=== PATIENT | male | born 1990 | race Caucasian/White ===

== ENCOUNTER 2024-09-08 09:52 | Emergency (ER) | payer BC, SELFPAY ==
--- OUTSIDE RECORDS SUMMARY | 2024-09-08 09:59 | XMS_ITS | Patient Health Summary ---
Author Organization [facility] Address [address] [place] [address] Care Team Providers Care Shake Out Worker Name Role Phone Unavailable Primary Care Provider Unavailabl e Note from [facility],non-owned Affiliates and Associated Physician Practices is amultiple site organization consisting of ambulatory clinics and hospital sitesin [place], [place], [place] and [place]. This disclosure is being madepursuant to the Care Everywhere program and may not contain all information available regarding this patient. Last updated 18.[facility] [employer] Allergies No known active allergies Social History Tobacco Use Types Packs/Day Years Used Date Smoking Tobacco: Never Assessed Sex and Gender Information Value Date Recorded Sex Assigned at Not on file Gender Identity Not on file Sexual Orientation Not on file Procedures * MRI BRAIN WWO CONTRAST(Performed 09/05/2014) Performed for Headache(784.0) Results * MRI BRAIN WITH AND WITHOUT CONTRAST (09/05/2014 3:30 PM CDT) Anatomical Region Laterality Modality Head Magnetic Resonan ce 09/06/2014 6:40 PM CDT Narrative 09/06/2014 6:42 PM CDT Examination: MRI brain, with and without contrast. Indication for examination: Persistent severe headache Precontrast T1 and T2-weighted images with contrast-enhanced T1-weighted images of the brain are obtained. 15 cc Omniscan contrast were used. No prior brain imaging studies are available. No abnormal signal intensity is identified to suggest the presence of tumor, infarct or demyelinating process. Ventricles and subarachnoid pathways are normal in size and configuration. There is no mass lesion or fluid collection. No parenchymal blood product deposition is observed. Paranasal sinuses are well aerated. Contrast-enhanced images show no abnormal enhancement. Conclusion: Unremarkable pre-and postcontrast MRI brain. Procedure Note Eliazar Snyder MD - 09/06/2014 Examination: MRI brain, with and without contrast. Indication for examination: Persistent severe headache Precontrast T1 and T2-weighted images with contrast-enhanced T1-weighted images of the brain are obtained. 15 cc Omniscan contrast were used. No prior brain imaging studies are available. No abnormal signal intensity is identified to suggest the presence of tumor, infarct or demyelinating process. Ventricles and subarachnoid pathways are normal in size and configuration. There is no mass lesion or fluid collection. No parenchymal blood product deposition is observed. Paranasal sinuses are well aerated. Contrast-enhanced images show no abnormal enhancement. Conclusion: Unremarkable pre-and postcontrast MRI brain. Aguilar Mendiola MD MR ORDERABLES
--- OUTSIDE RECORDS SUMMARY | 2024-09-08 09:59 | XMS_ITS | Referral Summary ---
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 Gender Identity Not on file Sexual Orientation Not on file Last Filed Vital Signs Vital Sign Reading Time Taken Comments Blood Pressure 110/76 03/09/2021 10:45 AM CDT Pulse 82 03/09/2021 10:45 AM CDT Temperature 37.1 C (98.7 F) 03/09/2021 10:45 AM CDT Respiratory Rate 18 03/09/2021 10:45 AM CDT Oxygen Saturation 97% 03/09/2021 10:45 AM CDT Inhaled Oxygen Concentration - - Weight 117.9 kg (260 lb) 03/09/2021 10:45 AM CDT Height 172.7 cm (5' 8 ) 03/09/2021 10:45 AM CDT Body Mass Index 39.53 03/09/2021 10:45 AM CDT Plan of Treatment Not on file Insurance [facility] CHOICE PLUS [facility] HMO/PPO Address: [address] [address] [place] [address] Care Teams Cellulose Insulation Helper Relationship Specialty Start Date End Date No, Physician PCP - General 03/08/21
--- OUTSIDE RECORDS SUMMARY | 2024-09-08 09:59 | XMS_ITS | Clinical Summary ---
Author Organization [facility] Address [address] [place] [address] Phone Care Team Providers Care Antique Repairer Name Role Phone Provider, None Primary Care Provider Unavailabl e Allergies No known active allergies Medications methylPREDNISol one (MEDROL DOSPACK) 4 MG Tablet Therapy Pack See product package insert for dosing schedule 21 Tab 03/27/2017 Active meclizine (ANTIVERT) 25 MG Tablet Take 1 Tab by mouth 3 times daily as needed for Dizziness. 15 Tab 07/15/2019 Active Social History Tobacco Use Types Packs/Day Years Used Date Smoking Tobacco: Never Smokeless Tobacco: Never Alcohol Use Standard Drinks/Week Comments No 0 (1 standard drink = 0.6 oz pur e alcohol) Sex and Gender Information Value Date Recorded Sex Assigned at Not on file Legal Sex Male 10:09 PM CDT Gender Identity Not on file Sexual Orientation Not on file Last Filed Vital Signs Vital Sign Reading Time Taken Comments Blood Pressure 134/91 07/15/2019 8:30 PM PLANOGRAMMER Pulse 82 07/15/2019 8:30 PM PLANOGRAMMER Temperature 35.8 C (96.5 F) 07/15/2019 7:15 PM PLANOGRAMMER Respiratory Rate 23 07/15/2019 8:30 PM PLANOGRAMMER Oxygen Saturation 97% 07/15/2019 8:30 PM PLANOGRAMMER Inhaled Oxygen Concentration - - Weight 117.9 kg (260 lb) 07/15/2019 7:15 PM PLANOGRAMMER Height 170.2 cm (5' 7 ) 07/15/2019 7:15 PM PLANOGRAMMER Body Mass Index 40.72 07/15/2019 7:15 PM PLANOGRAMMER Plan of Treatment Health Maintenance Due Date Last Done Comments Hepatitis C Virus (HCV) Screening 1989 TdaP Immunization 1989 Hepatitis B Immunization (1 of 3 - 19+ 3-dose series) 01/13/2008 Influenza Immunization (#1) 2024 SARS-COV-2 Immunization ( - season) 2024 Respiratory Syncytial Virus (RSV) Immunization (Adult) (1 - 1-dose 75+ series) 01/13/2064 Meningococcal Immunization (ACWY) Aged Out No longer eligible based on patient's age to complete this topic Pneumococcal Immunization Combined Aged Out No longer eligible based on patient's age to complete this topic Rotavirus Immunization Aged Out No lo nger eligible based on patient's age to complete this topic Care Teams Antique Repairer Relationship Specialty Start Date End Date Provider, None [place] PCP - General 10/24/16
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
--- OUTSIDE RECORDS SUMMARY | 2024-09-08 09:59 | XMS_ITS | Referral Summary ---
Author Organization [facility] Address [address] [place] [address] Care Team Providers Care Food And Beverage Intern Name Role Phone Unavailable Primary Care Provider Unavailabl e Source Comments [facility],non-owned Affiliates and Associated Physician Practices is amultiple site organization consisting of ambulatory clinics and hospital sitesin [place], [place], [place] and [place]. This disclosure is being madepursuant to the Care Everywhere program and may not contain all information available regarding this patient. Last updated 18.[facility] Allergies No known active allergies Social History Tobacco Use Types Packs/Day Years Used Date Smoking Tobacco: Never Assessed Sex and Gender Information Value Date Recorded Sex Assigned at Not on file Gender Identity Not on file Sexual Orientation Not on file Plan of Treatment Not on file
--- OUTSIDE RECORDS SUMMARY | 2024-09-08 09:59 | XMS_ITS | Clinical Summary ---
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
--- OUTSIDE RECORDS SUMMARY | 2024-09-08 09:59 | XMS_ITS | Clinical Summary ---
Author Organization [facility] Address [address] [place] [address] Care Team Providers Care Solar Panel Installer Name Role Phone Unavailable Primary Care Provider Unavailabl e Source Comments [facility],non-owned Affiliates and Associated Physician Practices is amultiple site organization consisting of ambulatory clinics and hospital sitesin [place], [place], [place] and [place]. This disclosure is being madepursuant to the Care Everywhere program and may not contain all information available regarding this patient. Last updated 18.[facility] Allergies No known active allergies Social History Tobacco Use Types Packs/Day Years Used Date Smoking Tobacco: Never Assessed Sex and Gender Information Value Date Recorded Sex Assigned at Not on file Gender Identity Not on file Sexual Orientation Not on file Plan of Treatment Health Maintenance Due Date Last Done Comments HIV SCREENING 01/13/2004 HEPATITIS C SCREENING 01/08/2007 DTAP/TDAP/TD VACCINES (1 - Tdap) 01/13/2008 HEPATITIS B VACCINE (1 of 3 - 19+ 3-dose series) 01/13/2008 COVID-19 VACCINE ( - 2023-2 5 season) 2024 INFLUENZA VACCINE (#1) 2024 DEPRESSION SCREENING 06/26/2024 ZOSTER VACCINE (1 of 2) 2039 HIB VACCINE Aged Out No longer eligi ble based on patient's age to complete this topic HPV VACCINE Aged Out No longer eligi ble based on patient's age to complete this topic MENINGOCOCCAL (Group B) VACC INE SHARED DECISION-MAKING Aged Out No longer eligibl e based on patient's age to complete this topic MENINGOCOCCAL GROUPS A/C/Y/W VACCINE Aged Out No longer eligible b ased on patient's age to complete this topic PNEUMOCOCCAL VACCINE Aged Out No long er eligible based on patient's age to complete this topic
--- OUTSIDE RECORDS SUMMARY | 2024-09-08 09:59 | XMS_ITS | Clinical Summary ---
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 Gender Identity Not on file Sexual Orientation Not on file Plan of Treatment Health Maintenance Due Date Last Done Comments Annual Physical 01/13/1992 Hepatitis C 2007 DTaP, Tdap and Td Vaccines ( 1 - Tdap) 01/13/2008 Hepatitis B Vaccines (1 of 3 - 19+ 3-dose series) 01/13/2008 COVID-19 Vaccine (2023-2 5 season) 2024 Influenza Adult (#1) 2024 HPV Vaccines Aged Out No longer eligi ble based on patient's age to complete this topic Meningococcal B Vaccine Aged Out No l onger eligible based on patient's age to complete this topic Meningococcal Vaccine Aged Out No veronica bear eligible based on patient's age to complete this topic Pneumococcal Vaccine: Pediat rics (0 to 5 Years) and At-Risk Patients (6 to 64 Years) Aged Out No longer eligible b ased on patient's age to complete this topic RSV Immunizations Under 20 Months Aged Out No longer eligible based on patient's age to complete this topic
[2024-09-08 10:00] VITALS: BP 144/85; PULSE 77; RESP 16; TEMP 36.1; O2SAT 99
--- NOTE | 2024-09-08 10:01 | ED_ITS ---
HPI - URI/Sore Throat General Chief Complaint: Upper Respiratory Infection Stated Complaint: Right Ear Problem/Sore Throat Time Seen by Provider: 09/08/24 10:07 Source: patient, RN notes reviewed and old records reviewed Mode of arrival: ambulatory Limitations: no limitations History of Present Illness HPI Narrative: 34 year old male [facility] with complaints of right ear pain for the past week with decreased hearing and also has had a sore throat for the past week also. Patient reports that he had a fever for one day when symptoms started of 100F and has not had any since. Patient reports that he does have sinus congestion and drainage and also has noted cough at night. Patient reports that he has been taking Mucinex DM for his symptoms. MD elicited complaint: sore throat and other (ear pain right) Onset (ago): week(s) (1) Consistency: constant Pain scale (0-10): 4 Description of mucous: clear Able to tolerate fluids by mouth: Yes Treatments prior to arrival: other (Mucinex DM) Related Data Allergies Allergy/AdvReac Type Severity Reaction Status Date / Time No Known Allergies Allergy Verified 09/08/24 09:53 Review of Systems Review of Systems: CONSTITUTIONAL: Reports no malaise, no present chills, sweats, or fever. EYES: Denies visual changes, redness, or discharge. ENT: Reports rhinorrhea, congestion, no sinus pain,right otalgia and positive for sore throat. CARDIOVASCULAR: Denies chest pain, palpitations, or edema. RESPIRATORY: Reports cough.? Denies dyspnea. GASTROINTESTINAL: Denies abdominal pain, nausea, vomiting, diarrhea SKIN: Denies rash or itching. MUSCULOSKELETAL: Denies myalgia. NEUROLOGIC: Denies headache. All systems reviewed & are unremarkable except as noted in HPI and below PMFSH Social History Social History (Updated 09/08/24 @ 10:22 by Bambi Ac NP) Smoking status: Never smoker Alcohol intake: never Substance use type: does not use Living arrangements: with family Gender identity (if verbalized by the patient): Male Comments At time of signature, agree with nursing past medical, surgical, social and family history. There is no relevant family history pertinent to the presenting complaint Exam Narrative: GENERAL: Well-appearing, well-nourished, and in no acute distress. HEAD: Normocephalic EYES: PERRLA, conjunctivae clear ENT: Nares clear, turbinates edematous and erythematous, clear discharge. Mucous membranes moist.Right TM red and bulging, Left TM pearly brady with dull light reflex ; no tragal tenderness. Oropharynx erythematous without lesions. Tonsils not enlarged and without exudate, no drooling, no hoarseness, no trismus, uvula midline., post nasal drainage NECK: Supple. No lymphadenopathy CHEST: Clear to auscultation, breath sounds equal. No wheezing, rhonchi, rales, or stridor. No respiratory distress, speaks in full sentences. cough especially at nightSAO2 99% on room air HEART: Regular rate and rhythm. No murmur heard. SKIN: Warm, dry, no rash. NEURO: Alert and oriented x3. PSYCH: Normal mood and affect Course Course Emergency Course: Patient is aware of diagnosis, understands and agrees to treatment plan.? Anticipatory guidance given.? Patient agrees to follow-up as directed and is aware of reasons to seek care at the emergency department. Portions of this record may have been created with voice recognition software Level of Care: Express Care Visit Vital Signs Vital signs: Vital Signs Temperature 36.1 C L 09/08/24 10:00 Pulse Rate 77 09/08/24 10:00 Respiratory Rate 16 09/08/24 10:00 Blood Pressure 144/85 H 09/08/24 10:00 Pulse Oximetry 99 09/08/24 10:00 Oxygen Delivery Room Air 09/08/24 10:00 Temperature 36.1 C L 09/08/24 10:00 Pulse Rate 77 09/08/24 10:00 Respiratory Rate 16 09/08/24 10:00 Blood Pressure 144/85 H 09/08/24 10:00 Pulse Oximetry 99 09/08/24 10:00 Oxygen Delivery Room Air 09/08/24 10:00 Reviewed MDM - URI/Sore Throat MDM Narrative Medical decision making narrative: Differential diagnosis considered: Rowe virus, strep pharyngitis, allergic rhinitis, upper respiratory tract infection, sinusitis, rhinosinusitis, nasopharyngitis. viral pharyngitis, otitis media, otitis externa, pneumonia, bronchitis, viral cough syndrome, viral syndrome, and influenza.? Exam findings show no acute concerns or changes; patient is non-toxic appearing and is in no distress.? Patient is appropriate for outpatient treatment and follow-up. Differential Diagnosis Differential diagnosis: Likely upper respiratory infection, otitis media, viral infection, pharyngitis and other (strep pharyngitis, cough) Medical Records Attestation: I reviewed the patient's medical records. Lab Data Attestation: I reviewed the patient's lab results. Lab results narrative: strep screen negative, culture sent Labs: Lab Results 09/08/24 Range/Units 10:19 POC Grp A Strep Screen Negative (Negative) reviewed Critical Care Time Critical Care Time Critical Care Time: No Discharge Plan Discharge Clinical Impression: URI, acute Otitis media Qualifiers: Otitis media type: serous Chronicity: acute Laterality: right Recurrence: non-recurrent Qualified Code(s): H65.01 - Acute serous otitis media, right ear Patient Disposition: Home, Self-Care Condition: Stable Instructions: Antibiotic Form, Ear Infection (GEN) Additional Instructions: Increase fluids especially juices and water [id number] cough and cold medicine of your choice for your symptoms Zyrtec Claritin or Steff daily Tylenol or ibuprofen for any fever pain heat to the face 20-30 minutes 4-6 times a day for pain Salt water gargles, throat lozenges or throat sprays as desired Antibiotic as directed--finished the medication Continue your Mucinex DM If your symptoms persist, change or worsen significantly before you can contact your personal physician then please, without delay, go to the emergency department for further evaluation. Follow-up with PCP in 7-10 days or sooner if needed Follow up with PCP soon in regards to your blood pressure which is elevated above threshold for referral. Blood pressure above 120/80 may indicate pre- hypertension. 144/85 Patient Language: Kazakh Prescriptions: New amoxicillin-pot clavulanate 875-125 mg tablet 1 tablet PO Q12H Qty: 20 0RF Rx Instructions: take with food, recommend taking either probiotic or eating Activa yogurt while taking this medication Follow-up/Referrals: PHYSICIAN,COVERSTITCH MACHINE OPERATOR [Primary Care Provider] - Time of Disposition: 10:27 Quality Herron Coma Scale Eyes: Open Verbal: Oriented and Alert Motor: Follows Commands Melissa Coma Total Score: 15
[2024-09-08 10:22] LABS: EDSTREPNEGPOS1 Negative (Negative)
== END 2024-09-08 10:31 | disposition home or self-care (01) ==
PROVIDERS: Emergency Provider Registered Nurse
DX: J06.9 Acute upper respiratory infection, unspecified (principal); H65.01 Acute serous otitis media, right ear
CPT/HCPCS: 87081; 87880; 99203; G0463